=== PATIENT | female | born 1950 | race Caucasian/White ===

== ENCOUNTER 2017-07-09 09:00 | Outpatient (CLI) | payer MEDICARE, BC ==
--- NOTE | 2017-07-09 12:55 | MRI ---
MRI LEFT SHOULDER WITHOUT CONTRAST: INDICATIONS: Left shoulder pain with arm pain and numbness. COMPARISON: Left shoulder radiograph dated 11/14/2012. FINDINGS: There is a large full-thickness tear of the supraspinatus and infraspinatus with severe muscular atro phy of the supraspinatus and infraspinatus. There is moderate tendinosis of the subscapularis. Ther e is an irregular, multidirectional tear involving the superior glenoid labrum, extending into the po sterior-superior aspect of the glenoid labrum. There is no evidence of extension into the biceps anc hor or proximal longhead of the biceps tendon. The biceps tendon is located. There is moderate AC j oint osteoarthrosis. No enlarged lymph nodes are evident. IMPRESSION: 1. Massive rotator cuff tear involving the supraspinatus and infraspinatus, with severe muscular atr ophy of the supraspinatus and infraspinatus. 2. Large, likely complex tear involving the superior and posterior-superior glenoid labrum. 3. 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 POS: [facility]
--- NOTE | 2017-07-09 13:21 | MRI ---
MRI CERVICAL SPINE WITHOUT CONTRAST: HISTORY: Neck pain. Left shoulder pain. Arm pain and numbness. Symptoms times five to six months. COMPARISON: None. TECHNIQUE: A cervical spine MRI is performed without intravenous Gadolinium administration. Multisequential, mu ltiplanar imaging is performed. FINDINGS: There is normal cervical lordosis. Vertebral body height is maintained. There is no fracture. No s ignificant STIR hyperintensity to suggest vertebral body edema or ligamentous injury. The visualized brain parenchyma, cervicomedullary junction, cervical cord, and upper thoracic cord kimble ve normal size and signal intensity. There appears to be at least a partially empty sella. C2-C3: No significant disk osteophyte complex. No significant central canal stenosis. The foramina are patent. C3-C4: No significant disk osteophyte complex. No significant central canal stenosis. The neural f oramina are patent. C4-C5: Broad-based disk osteophyte complex with a central component. Deformity of the ventral midli ne cord. Mild to moderate central canal stenosis. No T2 hyperintensity in the cord. Degenerative c hanges in the bilateral uncovertebral joints results in moderate right and moderate to severe left fo raminal narrowing. C5-C6: Broad-based disk osteophyte complex effaces the ventral subarachnoid space. Mild central can al stenosis. No T2 hyperintensity of the cord. Degenerative changes in the bilateral uncovertebral joint results in moderate bilateral foraminal narrowing. C6-C7: Broad-based disk osteophyte complex abuts the thecal sac. There is no significant central ca nal stenosis. Moderate bilateral foraminal narrowing. C7-T1: Broad-based disk osteophyte complex abuts the thecal sac. There is a left paracentral compon ent. Mild central canal stenosis. The right neural foramen is patent. Moderate left foraminal narr owing due to degenerative change of the uncovertebral joint. IMPRESSION: Degenerative changes of the cervical spine, as above. POS: [facility]
== END 2017-07-09 09:01 | disposition home or self-care (01) ==
LOC: SCSMRI 09:00
PROVIDERS: ATTEND Orthopaedic Surgery
DX: M25.512 Pain in left shoulder (principal); M54.2 Cervicalgia; M47.812 Spondylosis without myelopathy or radiculopathy, cervical region; M19.012 Primary osteoarthritis, left shoulder; M75.102 Unspecified rotator cuff tear or rupture of left shoulder, not specified as traumatic
CPT/HCPCS: 72141

== ENCOUNTER 2018-06-11 14:45 | Emergency (ER) | payer MEDICARE, BC ==
--- NOTE | 2018-06-11 15:47 | CT ---
CT BRAIN WITHOUT CONTRAST: 06/11/18 HISTORY: Left arm weakness. Subdural hematoma recently. COMPARISON: None. FINDINGS: Small right frontal subarachnoid hemorrhage. Small volume right convexity subdural hematoma measuring 2 mm. No midline shift. No mass effect. IMPRESSION: 1. Small right inferior frontal sulcus subarachnoid hemorrhage. 2. Small volume right convexity subdural hematoma measuring 2 to 3 mm without significant mass e ffect. POS: [facility]
[2018-06-11 15:58] LABS: Hemoglobin 13.3 g/dL (12.0-16.0); Mean Corpuscular HGB CONC 32.4 g/dL (32.0-36.0); Mean Corpuscular Hemoglobin 29.8 pg (27.0-31.0); Mean Corpuscular Volume 91.9 fL (78.0-98.0); Mean Platelet Volume 9.3 fL (7.4-10.4); Platelet Count 240 thou/uL (130-400); RBC Distribution Width 11.9 % (11.5-14.5); Red Blood Cell (RBC) Count 4.46 mill/uL (4.20-5.40); White Blood Cell (WBC) Count 12.2 thou/uL (4.8-10.8)
[2018-06-11 16:16] LABS: Band 3 % (5-11); Eosinophils 3 % (0-10); Lymphocytes 5 % (21-51); MDiff Complete? YES; Monocytes 4 % (0-10); Neutrophil 85 % (42-75); PLT Morphology Comment Appears Adequate
[2018-06-11 16:33] LABS: ALT (SGPT) 12 U/L (8-55); AST (SGOT) 20 U/L (5-34); Albumin 4.2 g/dL (3.4-4.8); Alkaline Phosphatase 73 U/L (40-150); BUN (Urea Nitrogen) 47 mg/dL (9.8-20.1); Bilirubin, Total 0.5 mg/dL (0.2-1.2); Calc. Creatinine Clearance 0 mL/min (70-130); Calcium 10.2 mg/dL (7.8-10.44); Carbon Dioxide 24 mmol/L (23-31); Chloride 97 mmol/L (98-107); Estimated GFR-MDRD 44; Globulin 3.6 g/dL (2.4-3.5); Glucose 117 mg/dL (80-115); Potassium 4.1 mmol/L (3.5-5.1); Protein, Total 7.8 g/dL (6.0-8.3); Sodium 135 mmol/L (136-145)
[2018-06-11 16:35] LABS: Anion Gap 18 mmol/L (10-20)
== END 2018-06-11 16:44 | disposition home or self-care (01) ==
LOC: ERS 14:45
DX: I60.9 Nontraumatic subarachnoid hemorrhage, unspecified (principal); G95.19 Other vascular myelopathies; E78.5 Hyperlipidemia, unspecified; I10 Essential (primary) hypertension; Z79.899 Other long term (current) drug therapy; Z79.82 Long term (current) use of aspirin
CPT/HCPCS: 36415; 70450; 80053; 85025; 93005

== ENCOUNTER 2018-06-30 09:44 | Outpatient (CLI) | payer MEDICARE, BC ==
--- NOTE | 2018-06-30 10:22 | CT ---
CT BRAIN: History: Follow up subdural hematoma. Technique: Noncontrast enhanced CT images of the brain obtained on 06-30-18. Comparison: 06-11-18 FINDINGS: CT images of the brain demonstrate resolved subarachnoid hemorrhage. A small right frontal lateral vargas bdural hematoma is seen, not significantly changed since the previous exam. No evidence of acute subd ural hemorrhage is seen. No other intracranial abnormalities seen. No evidence of significant midline shift is seen. No evidence of intraventricular hemorrhage is seen. IMPRESSION: Small chronic right frontal subdural hematoma without evidence of significant midline shift or interv al changes. Previously noted subarachnoid hemorrhage has resolved. No definite evidence of intraparen chymal hemorrhage is seen. POS: [facility]
== END 2018-06-30 09:45 | disposition home or self-care (01) ==
LOC: TBSIIMAG 09:44
PROVIDERS: ATTEND Neurological Surgery
DX: S06.5X0A Traumatic subdural hemorrhage without loss of consciousness, initial encounter (principal)
CPT/HCPCS: 70450

== ENCOUNTER 2018-07-21 10:20 | Outpatient (CLI) | payer MEDICARE, BC ==
--- NOTE | 2018-07-21 12:11 | RAD ---
RIGHT HIP TWO VIEWS: History: Right hip pain. Fall. FINDINGS/IMPRESSION: No acute fracture or dislocation is identified. POS: [facility]
--- NOTE | 2018-07-21 12:23 | CT ---
CT BRAIN WITHOUT CONTRAST: HISTORY: Fall. Subdural hematoma. COMPARISON: 06/30/2018 FINDINGS: There has been interval resolution of the right-sided subdural hematoma noted on the previous study. No evidence of acute infarct, hemorrhage, midline shift, or abnormal extraaxial fluid collections is seen. The ventricular size is appropriate, and the basilar cisterns are patent. The bony calvarium is intact. The visualized paranasal sinuses and mastoid air cells are well aerated. IMPRESSION: No CT evidence of acute intracranial process. Interval resolution of right subdural hematoma since 08/30/2017. POS: [facility]
== END 2018-07-21 10:21 | disposition home or self-care (01) ==
LOC: TBSIIMAG 10:20
PROVIDERS: ATTEND Neurological Surgery
DX: S06.5X0A Traumatic subdural hemorrhage without loss of consciousness, initial encounter (principal); M25.559 Pain in unspecified hip
CPT/HCPCS: 70450

== ENCOUNTER 2019-08-31 05:43 | Day surgery (SDC) | payer MEDICARE, BC ==
[2019-08-30 13:09] VITALS: BMI 26.0
[2019-08-31] MEDS ORDERED: Cyclopentolate 1% Opth Drop 2 ML BOT ONE (06:01)
[2019-08-31] MEDS ORDERED: Phenylephrine 2.5% Ophth Soln 5 ML BOT ONE (06:01)
[2019-08-31] MEDS ORDERED: EPINEPHrine 0.3 MG in Ophthalmic Irrigation Solution 500 ML IRR SCH ×2 (06:07→06:30)
[2019-08-31] MEDS ORDERED: Fentanyl 100 MCG/2 ML VIAL ONE (06:17)
[2019-08-31] MEDS ORDERED: Midazolam HCl 2 mg/2 ml Vial ONE (06:47)
[2019-08-31] MEDS ORDERED: PROPOFOL 20 ML ONE (09:02)
--- NOTE | 2019-08-31 09:18 | OP ---
DATE OF PROCEDURE: 08/31/2019 PREOPERATIVE DIAGNOSIS: Vitreomacular traction, left eye. POSTOPERATIVE DIAGNOSIS: Vitreomacular traction, left eye. PROCEDURES PERFORMED: Pars plana vitrectomy and membrane peel, left eye. ANESTHESIA: Local monitored anesthesia care. PROCEDURE IN DETAIL: The patient was identified in the preoperative holding area. Appropriate informed consent for the planned surgical procedure on the left eye had been obtained. The patient was transported to the operative suite. Appropriate cardiopulmonary monitoring was established. Local anesthesia was obtained using retrobulbar block. The patient was prepped and draped in the usual sterile manner for ophthalmic surgery in the left eye. Lid speculum was placed in the left eye. A 27-gauge trocar was placed in the conjunctiva and sclera superotemporally, inferotemporally, and supranasally. Infusion line was placed inferotemporally. Light pipe and vitreous cutter were inserted into the eye. Core vitrectomy was performed. Posterior hyaloid face was noted to be attached. This was elevated using vacuum suction and peeled across the macula glial area of fovea. Adhesion was noted to release. The vitreous was trimmed into the periphery. Prophylactic laser was placed using a drape delivery device. No holes, breaks, or tears were identified. Trocars removed. The eye was noted to retain pressure well. Retrobulbar Kenalog and subconjunctival Ancef were placed. Antibiotic ointment was placed. Eye was patched and shielded. The patient was taken to postoperative recovery unit in good condition, having suffered no immediate perioperative complications. The patient was instructed to keep patch and shield on, avoid lifting or bending, followup appointment with Dr. Meyers. Job ID: [id number]
[2019-08-31] MEDS ORDERED: Lidocaine 1% PF 5 ML VIAL ONE (09:29)
[2019-08-31] MEDS ORDERED: PROPOFOL 200 MG/20 ML VIAL ONE (09:29)
[2019-08-31] MEDS ORDERED: CEFAZOLIN 1 GM VIAL ONE (09:29)
[2019-08-31] MEDS ORDERED: Triamcinolone 40 MG/ML VIAL ONE (09:29)
[2019-08-31] MEDS ORDERED: Maxitrol 0.1% Opth Oint 3.5 GM TUBE ONE (09:29)
[2019-08-31] MEDS ORDERED: Bupivacaine PF 0.75% SDV 10 ML ONE (09:29)
[2019-08-31] MEDS ORDERED: Lidocaine 4% PF 5 ML AMP ONE (09:29)
== END 2019-08-31 08:40 | disposition home or self-care (01) ==
LOC: SDC 05:43
PROVIDERS: ATTEND Ophthalmology Retina Specialist
PROC: 08T53ZZ Resection of Left Vitreous, Percutaneous Approach (ICD-10-PCS; principal; 2019-08-31)
PROC: 08NF3ZZ Release Left Retina, Percutaneous Approach (ICD-10-PCS; 2019-08-31)
DX: H43.822 Vitreomacular adhesion, left eye (principal); Z79.899 Other long term (current) drug therapy
CPT/HCPCS: J0171; J0690; J2001; J2250; J2704; J3010; J3301; J3490

== ENCOUNTER 2022-01-01 12:44 | Outpatient (CLI) | payer MEDICARE, BC | END 2022-01-01 12:45 | disposition home or self-care (01) | LOC: TBSIIMAG 12:44 | PROVIDERS: ATTEND Neurological Surgery | DX: M54.2 Cervicalgia (principal); M47.812 Spondylosis without myelopathy or radiculopathy, cervical region; G95.20 Unspecified cord compression; Z98.890 Other specified postprocedural states | CPT/HCPCS: 72156 ==

== ENCOUNTER 2022-06-24 14:16 | Outpatient (CLI) | payer MEDICARE, BC ==
[2022-06-24 15:12] LABS: #Basophils 0.1 10x3/uL (0.0-0.2); #Eosinphils 0.3 10x3/uL (0.0-0.5); #Monocytes 0.5 10x3/uL (0.0-1.1); #Neutrophils 5.1 10x3/uL (1.5-8.4); %Basophils 0.7 % (0.0-2.0); %Eosinophils 3.3 % (0.0-6.0); %Lymphocytes 20.1 % (18.0-47.0); %Monocytes 6.8 % (0.0-10.0); %Neutrophils 68.6 % (40.0-75.0); Hemoglobin 12.4 g/dL (12.0-15.5); Mean Corpuscular HGB CONC 32.5 g/dL (32.0-36.0); Mean Corpuscular Hemoglobin 30.5 pg (27.0-33.0); Mean Corpuscular Volume 93.8 fl (81.6-98.3); Mean Platelet Volume 11.6 fl (7.4-10.4); Platelet Count 271 10x3/uL (150-450); RBC Distribution Width 13.5 % (11.5-14.5); Red Blood Cell (RBC) Count 4.06 10x6/uL (3.90-5.03); White Blood Cell (WBC) Count 7.5 10x3/uL (3.5-10.5)
== END 2022-06-24 14:17 | disposition home or self-care (01) ==
LOC: LABBT 14:16
PROVIDERS: ATTEND Orthopaedic Surgery Hand Surgery
DX: Z01.818 Encounter for other preprocedural examination (principal); G56.01 Carpal tunnel syndrome, right upper limb; M65.341 Trigger finger, right ring finger; G56.80 Other specified mononeuropathies of unspecified upper limb
CPT/HCPCS: 85025; 93005; 93010

== ENCOUNTER 2022-06-29 11:26 | Day surgery (SDC) | payer MEDICARE, BC ==
[2022-06-24 15:43] VITALS: BMI 28.3
[2022-06-29] MEDS ORDERED: fentaNYL PF 100 MCG/2 ML SYRINGE ONE (13:16)
[2022-06-29] MEDS ORDERED: Betamet Acet/Betamet Na Ph 30 MG/5 ML VIAL ONE (13:20)
[2022-06-29] MEDS ORDERED: Bupivacaine PF 0.5% 30 ML VIAL ONE (13:20)
[2022-06-29] MEDS ORDERED: Neomycin-Polymyxin 1 ML AMP ONE (13:20)
[2022-06-29] MEDS ORDERED: Bacitracin Zinc Ointment 30 gm TUBE ONE (13:20)
[2022-06-29 13:39] LABS: Anion Gap 13 mmol/L (10-20); BUN (Urea Nitrogen) 24 mg/dL (9.8-20.1); Calc. Creatinine Clearance 61 mL/min (70-130); Calcium 9.6 mg/dL (7.8-10.44); Carbon Dioxide 24 mmol/L (23-31); Chloride 105 mmol/L (98-107); Estimated GFR 65; Glucose 94 mg/dL (83-110); Potassium 4.2 mmol/L (3.5-5.1); Sodium 138 mmol/L (136-145)
[2022-06-29] MEDS ORDERED: CEFAZOLIN 2 GM VIAL ONE (13:48)
[2022-06-29] MEDS ORDERED: Sodium Chloride 0.9% 100 ML ONE (13:48)
[2022-06-29] MEDS ORDERED: ePHEDrine 50 MG/ML VIAL ONE (14:12)
[2022-06-29] MEDS ORDERED: PROPOFOL 200 MG/20 ML VIAL ONE (14:12)
[2022-06-29] MEDS ORDERED: Phenylephrine 10 MG/ML VIAL ONE (14:12)
[2022-06-29] MEDS ORDERED: Ondansetron PF 4 MG/2 ML Vial ONE (14:12)
[2022-06-29] MEDS ORDERED: FENTANYL 50 MCG/ML 1 ML VIAL ONE ×2 (15:55→16:17)
[2022-06-29] MEDS ORDERED: Ketorolac Tromethamine 30 MG/ML VIAL ONE (16:00)
== END 2022-06-29 17:19 | disposition home or self-care (01) ==
LOC: SDC 11:26
PROVIDERS: ATTEND Orthopaedic Surgery Hand Surgery
PROC: 01N50ZZ Release Median Nerve, Open Approach (ICD-10-PCS; principal; 2022-06-29)
PROC: 0LN70ZZ Release Right Hand Tendon, Open Approach (ICD-10-PCS; 2022-06-29)
PROC: 01N50ZZ Release Median Nerve, Open Approach (ICD-10-PCS; 2022-06-29)
DX: G56.11 Other lesions of median nerve, right upper limb (principal); G56.01 Carpal tunnel syndrome, right upper limb; M65.341 Trigger finger, right ring finger; G56.21 Lesion of ulnar nerve, right upper limb; I10 Essential (primary) hypertension; E78.00 Pure hypercholesterolemia, unspecified; E55.9 Vitamin D deficiency, unspecified; J44.9 Chronic obstructive pulmonary disease, unspecified; Z79.890 Hormone replacement therapy; Z79.899 Other long term (current) drug therapy
CPT/HCPCS: 26055; 64708; 64721; 80048; J3010; J0702; J1885; J2370; J2405; J2704; J3490; S0020